=== PATIENT | male | born 1965 ===

== ENCOUNTER 2019-08-12 12:13 | Emergency (ER) | payer BC ==
--- NOTE | 2019-08-12 13:07 | ULT ---
Exam: Left lower extremity venous ultrasound with Doppler HISTORY: Evaluate for thrombosis. COMPARISON: None TECHNIQUE: Grayscale, color flow, Doppler imaging and spectral waveform analysis performed the left l ower extremity venous system FINDINGS: There is compressibility, presence of flow and augmentation in the common femoral vein, proximal and popliteal vein. There is flow in the greater saphenous vein and profunda femoral vein. There is flow in the proximal and mid posterior tibial vein. There is incomplete compressibility and echogenic material in the distal posterior tibial vein suggesting thrombus. In the region of pain, there is a tubular structure without evidence of compressibility and flow comp atible with a superficial vein thrombus. IMPRESSION: 1. Thrombus involving the left lower extremity deep venous system involving the distal posterior tibi al vein. 2. Superficial vein thrombus in the region of pain, medial to the knee.
[2019-08-12 14:07] LABS: #Eosinphils 0.2 thou/uL (0.0-0.7); #Lymphocytes 1.4 thou/uL (1.20-3.40); #Monocytes 0.4 thou/uL (0.11-0.59); #Neutrophils 4.1 thou/uL (1.40-6.50); %Basophils 0.8 % (0.0-1.0); %Eosinophils 3.2 % (0.0-10.0); %Lymphocytes 23.1 % (21.0-51.0); %Neutrophils 65.9 % (42.0-75.0); Hemoglobin 14.4 g/dL (14.0-18.0); Mean Corpuscular HGB CONC 34.2 g/dL (32.0-36.0); Mean Corpuscular Hemoglobin 32.6 pg (27.0-31.0); Mean Corpuscular Volume 95.2 fL (78.0-98.0); Mean Platelet Volume 8.7 fL (7.4-10.4); Platelet Count 158 thou/uL (130-400); RBC Distribution Width 11.7 % (11.5-14.5); Red Blood Cell (RBC) Count 4.43 mill/uL (4.70-6.10); White Blood Cell (WBC) Count 6.2 thou/uL (4.8-10.8)
[2019-08-12 14:13] LABS: PTT 25.5 SEC (22.9-36.1); Prothrombin Time 13.1 SEC (12.0-14.7)
[2019-08-12 14:24] LABS: ALT (SGPT) 21 U/L (8-55); AST (SGOT) 20 U/L (5-34); Albumin 4.5 g/dL (3.5-5.0); Alkaline Phosphatase 55 U/L (40-110); Anion Gap 13 mmol/L (10-20); BUN (Urea Nitrogen) 11 mg/dL (8.4-25.7); Bilirubin, Total 0.5 mg/dL (0.2-1.2); Calc. Creatinine Clearance 0 mL/min (70-130); Calcium 10.2 mg/dL (7.8-10.44); Carbon Dioxide 29 mmol/L (22-29); Chloride 103 mmol/L (98-107); Estimated GFR-MDRD 74; Globulin 2.8 g/dL (2.4-3.5); Glucose 89 mg/dL (70-105); Potassium 3.5 mmol/L (3.5-5.1); Protein, Total 7.3 g/dL (6.0-8.3); Sodium 141 mmol/L (136-145)
[2019-08-12] MEDS ORDERED: Enoxaparin Sodium 100 MG/ML SYRINGE ONE (14:45)
[2019-08-12] MEDS ORDERED: Rivaroxaban 15 MG TAB PO SCH (15:15)
--- NOTE | 2019-08-12 20:06 | CON ---
DATE OF CONSULTATION: REASON FOR CONSULTATION: DVT management. CONSULTING PHYSICIAN: Dr. Harris Henderson, ER physician. HISTORY OF PRESENT ILLNESS: This is a 54-year-old male history of hypertension and GERD, presented with a new diagnosis of DVT. His symptoms started 2 weeks ago, some cramps and pain in the tibial area. Subsequently, he went to [facility], drove 6 hours on Thursday and drove back 6 hours on Thursday and noted that he had more significant pain. During the ER evaluation, he had a new diagnosis of DVT and the ER physician consulted the hospitalist for further management. The patient does not have any major risk factors other than the drive of 6 hours duration on last Thursday and 6 hours this Thursday. No other risk factors including smoking, recent surgery, or on any coagulant medications. The patient has no history of bleeding diathesis in the family other than his father had blood clot at age around 50. His father also was an director of software engineering in the train and he travels quite a bit and believed that had contributed his blood clot. The patient does not smoke and has no history of venous insufficiency or peripheral vascular disease. The patient has no history of heart murmur, history of FL, or stroke. The patient is not diabetic. REVIEW OF SYSTEMS: 13-point review of systems reviewed with the patient. Pertinent is in the history of present illness and the rest are negative including no fever, night sweats, or chills. No headache, blurriness, tingling, or numbness in his extremities other than the pain. ALLERGIES: THE PATIENT IS ALLERGIC TO SULFA. PAST MEDICAL HISTORY: Hypertension and GERD. MEDICATIONS: He states that he is taking lisinopril, unknown dose. SOCIAL HISTORY: The patient does not smoke. Alcohol every other day. FAMILY HISTORY: Father was a security trainer and requires frequent travel. Mother has no major medical issues. PHYSICAL EXAMINATION: GENERAL: The patient is afebrile and normotensive. Not in any acute distress. HEENT: Pupils equal, round, reactive to light. Anicteric. Mucous membranes moist. CARDIOVASCULAR: Regular rate and rhythm without murmurs, rubs, or gallops. LUNGS: Clear to auscultation bilaterally without wheezing, rales, or rhonchi. ABDOMEN: Soft, nontender, nondistended. Good bowel sounds. EXTREMITIES: His left leg has mild erythema around the knee area and some warmth and mild edema on his left lower extremity. IMAGING STUDIES: Ultrasound showed thrombus in the left lower extremity deep venous system involving the distal posterior tibial vein and superficial vein thrombus in the region of the pain medial to the knee. His CBC is in the normal range. His chemistry is also in the normal range. His INR is 1.0. IMPRESSION AND PLAN: A 54-year-old male with history of hypertension, presenting with a new diagnosis of deep vein thrombosis. He has no significant comorbidities that warrant inpatient evaluation. Risk provoking factor of drive may be etiology for his newfound deep vein thrombosis. Given his lack of peripheral vascular disease and coronary artery disease, the patient will be discharged with Xarelto 15 mg twice a day for 3 weeks and then 20 mg daily. Instructions are given including use of anticoagulant and cautions to be taken. He will be getting one dose of Xarelto prior to going home today from the ER. I have counseled him on the appropriate use of anticoagulant and if he has any worsening of the swelling or pain, Blood in the urine or stool , he is instructed to come back to the ER. Otherwise, he will be following with his primary care physician within a week. Thank you for the consult. The patient can be discharged safely from the ER. Job ID: [id number] [id number]
== END 2019-08-12 16:28 | disposition home or self-care (01) ==
LOC: ERS 12:13
DX: I82.442 Acute embolism and thrombosis of left tibial vein (principal); I10 Essential (primary) hypertension; Z79.899 Other long term (current) drug therapy
CPT/HCPCS: 36415; 80053; 85025; 85379; 85610; 85730; J1650